=== PATIENT | female | born 1940 | race Caucasian/White ===

== ENCOUNTER → 2016-07-06 | Outpatient (CLI) | payer OTHER, MEDICARE ==
[2016-07-06 17:04] LABS: BASOPHILS # (AUTO) 0.06 10*3/UL; BASOPHILS % (AUTO) 0.7 % (0-1); EOSINOPHILS # (AUTO) 0.14 10*3/UL; EOSINOPHILS % (AUTO) 1.7 % (0-8); HEMOGLOBIN 15.7 g/dL (12.0-16.0); LYMPHOCYTES # (AUTO) 2.62 10*3/uL; MEAN CORPUSCULAR HEMOGLOBIN 30.5 PG (27-31); MEAN CORPUSCULAR HGB CONC 32.7 g/dL (33-37); MEAN CORPUSCULAR VOLUME 93.2 FL (81-99); MEAN PLATELET VOLUME 9.8 FL (7.4-12.2); MONOCYTES # (AUTO) 0.68 10*3/UL (0.3-0.8); MONOCYTES % (AUTO) 8.2 % (5-15); NEUTROPHILS # (AUTO) 4.81 10*3/UL; NEUTROPHILS % (AUTO) 57.7 % (50-80); RED BLOOD COUNT 5.15 10^6/uL (4.20-5.40)
--- NOTE | 2016-07-06 17:04 | EKG ---
[address] [address] Measurements Intervals [place] Rate: 86 P: 50 PA: 170 QRS: -30 QRSD: 92 T: 18 QT: 373 QTc: 416 Interpretive Statements SINUS RHYTHM INFERIOR MYOCARDIAL INFARCTION [40+ ms Q WAVE AND/OR ST/T ABNORMALITY IN II/aVF], PROBABLY OLD No previous ECG available for comparison Electronically Signed On 07-07-16 08:50:23 MDT by Jean Hall MD [email or web address]
[2016-07-06 17:09] LABS: PLATELET MORPHOLOGY COMMENT NORMAL MORPHOLOGY (NORM); RBC MORPHOLOGY COMMENT NORMAL MORPHOLOGY (NORM); WBC MORPHOLOGY COMMENT NORMAL MORPHOLOGY (NORM)
[2016-07-06 17:26] LABS: BUN/CREATININE RATIO 18.88 (6-20); CALCIUM 9.9 mg/dL (8.7-10.7); SERUM ALBUMIN 4.3 g/dL (3.5-4.8)
[2016-07-06 17:30] LABS: BILIRUBIN,URINE NEGATIVE (NEG); COLOR,URINE YELLOW; GLUCOSE, URINE (UA) NEGATIVE (NEG); NITRATE,URINE NEGATIVE (NEG); OCCULT BLOOD,URINE MODERATE (NEG); PROTEIN,URINE TRACE mg/dl (NEG); UROBILINOGEN,URINE 0.2 EU/dL (0.2)
[2016-07-06 17:44] LABS: CLARITY,URINE SLIGHTLY CLOUDY (CLEAR)
[2016-07-06 17:45] LABS: BACTERIA,URINE RARE; SQUAMOUS EPITHELIAL CELL,UR RARE
[2016-07-06 18:34] LABS: URINE SAMPLE TYPE CLEAN CATCH URINE
== END ==
LOC: MOB LAB 16:12
PROVIDERS: ATTEND Physician Assistant Medical
DX: N81.2 Incomplete uterovaginal prolapse (principal); I21.19 ST elevation (STEMI) myocardial infarction involving other coronary artery of inferior wall; Z82.49 Family history of ischemic heart disease and other diseases of the circulatory system
CPT/HCPCS: 36415; 80053; 81001; 83880; 84484; 85025; 93005; 93010; 99204; G0463

== ENCOUNTER 2016-07-16 07:56 | Day surgery (SDC) | payer OTHER, MEDICARE ==
[2016-07-16] MEDS ORDERED: Lactated Ringers 2,000 ML PRIMARY IV ONE (08:02)
[2016-07-16] MEDS ORDERED: LIDOCAINE W/ SODIUM BICARB 0.5 ML SYR ONE (08:02)
[2016-07-16] MEDS ORDERED: Sodium Chloride 0.9% 100 ML IV ONE (08:02)
[2016-07-16 08:32] LABS: BILIRUBIN,URINE NEGATIVE (NEG); COLOR,URINE YELLOW; GLUCOSE, URINE (UA) NEGATIVE (NEG); NITRATE,URINE NEGATIVE (NEG); OCCULT BLOOD,URINE NEGATIVE (NEG); PH,URINE 6.5 (5.0-8.5); PROTEIN,URINE NEGATIVE (NEG); UROBILINOGEN,URINE 0.2 EU/dL (0.2)
[2016-07-16 08:48] LABS: BACTERIA,URINE MODERATE; CLARITY,URINE CLEAR (CLEAR); SQUAMOUS EPITHELIAL CELL,UR FEW; URINE SAMPLE TYPE CLEAN CATCH URINE
[2016-07-16 09:05] VITALS: RESP 17; TEMP 97.7
[2016-07-16] MEDS ORDERED: MIDAZOLAM 5 MG/1 ML ONE (09:14)
[2016-07-16] MEDS ORDERED: LIDOCAINE MPF 2% - 5 ML (20 MG/1 ML) ONE (09:14)
[2016-07-16] MEDS ORDERED: fentaNYL Inj 250 MCG/5 ML VIAL ONE (09:14)
[2016-07-16] MEDS ORDERED: ROCURONIUM 10 MG/1 ML - 5 ML VIAL IVP ONE (09:16)
== END 2016-07-16 11:50 | disposition home or self-care (01) ==
LOC: SDSC 07:56
PROVIDERS: ATTEND Obstetrics & Gynecology
DX: Z53.09 Procedure and treatment not carried out because of other contraindication (principal); I72.8 Aneurysm of other specified arteries
CPT/HCPCS: 81001; J0694; J2704; J3010; J2001; J2250; J7050; J7120

== ENCOUNTER 2016-07-23 06:01 | Observation (INO) | payer OTHER, MEDICARE ==
[~2016-07-23 06:01] MED LIST: LIDOCAINE W/ SODIUM BICARB 0.5 ML SYR ONE; Lactated Ringers 2,000 ML PRIMARY IV ONE; Sodium Chloride 0.9% 100 ML IV ONE
[2016-07-23] MEDS ORDERED: REMIFENTANIL 1 MG/1 ML IV ONE ×3 (07:08→11:20)
[2016-07-23] MEDS ORDERED: Sodium Chloride 0.9% vial 20 ML ONE ×3 (07:09→11:21)
[2016-07-23] MEDS ORDERED: LIDOCAINE MPF 2% - 5 ML (20 MG/1 ML) ONE (07:19)
[2016-07-23] MEDS ORDERED: fentaNYL Inj 250 MCG/5 ML VIAL ONE (07:19)
[2016-07-23] MEDS ORDERED: MIDAZOLAM 5 MG/1 ML ONE (07:19)
[2016-07-23] MEDS ORDERED: ROCURONIUM 10 MG/1 ML - 5 ML VIAL IVP ONE (07:22)
[2016-07-23] MEDS ORDERED: PHENYLEPHRINE 10,000 MCG/1 ML VIAL ONE (07:29)
[2016-07-23] MEDS ORDERED: BUPIVACAINE 0.25% W/ EPI - 10 ML VIAL ONE (07:43)
[2016-07-23 07:46] LABS: BILIRUBIN,URINE NEGATIVE (NEG); COLOR,URINE YELLOW; GLUCOSE, URINE (UA) NEGATIVE (NEG); NITRATE,URINE NEGATIVE (NEG); OCCULT BLOOD,URINE NEGATIVE (NEG); PH,URINE 7.5 (5.0-8.5); PROTEIN,URINE NEGATIVE (NEG); UROBILINOGEN,URINE 0.2 EU/dL (0.2)
[2016-07-23 07:54] LABS: CLARITY,URINE CLEAR (CLEAR)
[2016-07-23 07:55] LABS: RBC,URINE 0-1 /hpf; SQUAMOUS EPITHELIAL CELL,UR RARE; URINE SAMPLE TYPE CLEAN CATCH URINE; WBC,URINE 0-1
[2016-07-23] MEDS ORDERED: KETAMINE 100 MG/1 ML - 5 ML ONE (08:52)
[2016-07-23] MEDS ORDERED: METHYLENE BLUE 10 MG/1 ML - 1 ML ONE (09:07)
[2016-07-23] MEDS ORDERED: Lactated Ringers 1,000 ML PRIMARY IV ONE ×2 (09:10→11:09)
[2016-07-23] MEDS ORDERED: NORMAL SALINE 10 ML SYRINGE FLUSH IVP PRN ×2 (10:05→12:44)
[2016-07-23] MEDS ORDERED: Acetaminophen 1000mg Inj 1,000 MG in Premix 1 BAG IV ONE (10:05)
[2016-07-23] MEDS ORDERED: Prochlorperazine Edisylate Inj 10mg/2ml vial IVP PRN (10:05)
[2016-07-23] MEDS ORDERED: HYDROmorphone 2 MG/1 ML IVP PRN (10:05)
[2016-07-23] MEDS ORDERED: LIDOCAINE HCL 2 % 10 ML JELLY URO-JECT TOPICAL ONE ×2 (12:25→12:30)
[2016-07-23] MEDS ORDERED: Opium-Belladonna 30-16.2mg 1 EACH SUPP.RECT RECTAL ONE (12:30)
[2016-07-23] MEDS ORDERED: KETOROLAC 30 MG/1 ML VIAL ONE (12:38)
[2016-07-23] MEDS ORDERED: KETOROLAC 15 MG/1 ML VIAL IVP PRN (12:44)
[2016-07-23] MEDS ORDERED: IBUPROFEN 400 MG TABLET PO PRN (12:44)
[2016-07-23] MEDS ORDERED: Ondansetron ODT Tab 8 MG TAB PO PRN (12:44)
--- NOTE | 2016-07-23 12:50 | OB.OP.NOTE ---
Operative Report Surgeon: Padmaja Complaint Specialist: Alan Clark MD Anesthesia Type: General Anesthesia Provider: Mehdi Montoya CRNA Surgery Date: 07/23/16 Preoperative Diagnosis: SPR Postoperative Diagnosis: Same Procedure: da [place] Hysterectomy with BSO and Robotic Sacral Colpopexy Estimated Blood Loss (mL): 150 Fluids: 2800 ml Complications: None. Indications for the Procedure: Small, menopausal uterus and ovaries. Large rectocele. Good support without tension noted at the conclusion of the procedure. Description of Procedure: See dictated operative report. Plan: Overnight observation. Discharge tomorrow morning.
[2016-07-23] MEDS: HYDROcodone-APAP 5 MG -325 MG TABLET PO PRN (19:03)
[2016-07-23 20:01] VITALS: RESP 20
[2016-07-23] MEDS: DOCUSATE 100 MG CAPSULE PO SCH (20:33)
[2016-07-24] MEDS: HYDROcodone-APAP 5 MG -325 MG TABLET PO PRN ×2 (00:25→07:03)
--- NOTE | 2016-07-24 08:22 | DCSUMMARY ---
Hospitalization Summary Admit Date: 07/23/16 Discharge Date: 07/24/16 Primary Diagnosis:: SPR Hospital Course: The patient underwent a robotic hysterectomy with BSO and robotic sacral colpopexy without complication. She was observed overnight and discharged to home on POD 1 in good condition. Exam - Vitals Vital Signs: Vital Signs Temperature 97.9 F Temperature Source Temporal Artery Scan Pulse Rate [Pulse Oximeter] 72 Pulse Rate 73 Respiratory Rate 20 Blood Pressure [Left Arm] 122/67 Blood Pressure 143/83 Pulse Ox 93 Oxygen Flow Rate 1 Oxygen Flow Rate 4 Oxygen Delivery Method Nasal Cannula Height 5 ft 2 in Weight 148 lb
[2016-07-24] MEDS: DOCUSATE 100 MG CAPSULE PO SCH (08:27)
[2016-07-24 08:36] VITALS: TEMP 98
--- NOTE | 2016-07-24 11:19 | CRNA.PROGR ---
Anesthesia Note Anesthesia Progress Note: Post OP Anesthesia Note Pt is sitting up in bed, resting comfortably with her family at her side. She stated that she had brief episodes of N/V late yesterday afternoon. she states that her pain control is well under control. She has been up ambulating and is anticipating being released today. She denies any residual issues of anesthesia. Current VS are stable. Vital Signs (Last 8 hours) Temp Pulse Resp BP Pulse Ox 07/24/16 08:35 98.0 F 72 20 112/66 92 07/24/16 04:42 97.9 F 72 20 122/67 93 07/24/16 04:40 93
== END 2016-07-24 09:51 | disposition home or self-care (01) ==
LOC: SDSC 06:01 → MED/SURG 12:44 → UNDOADMOB 13:47 → MED/SURG 13:47 → UNDODISOB 07-24 09:51
PROVIDERS: ADMIT Obstetrics & Gynecology; ATTEND Obstetrics & Gynecology
DX: N81.2 Incomplete uterovaginal prolapse (principal); N81.6 Rectocele
CPT/HCPCS: 81001; 94150; 94761; A4216; A9541; J1885; J2001; J2250; J2370; J3010; J7050; J7120; Q0162